=== PATIENT | female | born 1990 | race Caucasian/White ===

== ENCOUNTER → 2018-01-03 20:17 | Outpatient (CLI) | payer BC, SELFPAY ==
[2018-01-03 22:37] LABS: Chlamydia Trachomatis by PCR Negative (Negative); Neisserai gonorrhoeae by PCR Negative (Negative); Probe Check PASS; Sample Adequacy Control PASS; Specimen Processing Control PASS
[2018-01-06 13:04] LABS: HPV Reflexed? NOT INDICATED
== END ==
PROVIDERS: Family Provider Student in an Organized Health Care Education/Training Program; PCP Student in an Organized Health Care Education/Training Program; Visit Provider Obstetrics & Gynecology
DX: Z34.90 Encounter for supervision of normal pregnancy, unspecified, unspecified trimester (principal); Z12.4 Encounter for screening for malignant neoplasm of cervix
CPT/HCPCS: 87086; 87088; 87491; 87591; 88175; G0145

== ENCOUNTER → 2018-01-18 08:13 | Outpatient (CLI) | payer BC, SELFPAY ==
[2018-01-18 08:43] LABS: Absolute Lymphocyte Count 1.73 X10^3/ul (0.83-4.51); Absolute Neutrophil Count 8.3 X10^3/uL (2.0-7.7); Basophil# 0.02 X10^3/uL; Basophil% 0.2 % (0-1); Eosinophils% 4.6 % (0-5); Hematocrit 37.9 % (37-47); Hemoglobin 11.9 g/dl (12.0-15.0); Lymphocyte # 1.73 X10^3/ul (4.0); Mean Corp Hgb Conc 31.4 g/gl (32-36); Mean Corpuscular Hgb 27.6 pg (27.0-32.0); Mean Corpuscular Volume 87.9 fL (81-99); Mean Platelet Vol. 10.7 fl (6.2-12.0); Monocyte# 0.28 X10^3/uL; Monocyte% 2.6 % (0-10); Neutrophil # 8.27 X10^3/uL (2.7-7.7); Neutrophil % 76.5 % (47-70); POSITIVE COUNT NO; POSITIVE DIFFERENTIAL NO; POSITIVE MORPHOLOGY NO; Platelet Count 233 K/mm3 (150-450); RBC Distribution Width SD 45.5 fl (35.1-43.9); Red Blood Count 4.31 M/mm3 (4.2-5.4); White Blood Count 10.8 K/mm3 (4.4-11.0)
[2018-01-18 09:01] LABS: Creatinine, Urine (random) < 13.00 mg/dL (NO RANGE EST.); Protein, Urine (Random) < 6.0 mg/dL (<11.9)
[2018-01-18 09:08] LABS: ALB/GLOB Ratio 0.8 RATIO (0.9-2.4); AST(SGOT) 11 U/L (15-37); Alanine Aminotransfer ALT/SGPT 20 U/L (13-56); Albumin, Serum 3.1 g/dL (3.2-5.0); Alkaline Phosphatase 76 U/L (45-117); Anion Gap 9 (5-15); BUN 8 mg/dL (7-18); BUN/Creat Ratio 16.9 RATIO (10-20); Calcium,Total 8.5 mg/dL (8.5-10.1); Chloride 108 mmol/L (98-107); Creatinine, Serum 0.47 mg/dL (0.55-1.02); EST Glomerular Filtration Rate 168 mL/min (>60); Est Glom Filt Rate - Afr Amer 203 mL/min (>60); Globulin 4.1 g/dL (2.2-4.2); Glucose 111 mg/dL (74-106); Glucose Challenge Gest 1H 50g 111 mg/dL (70-140); LDH 154 U/L (84-246); Potassium 3.5 mmol/L (3.5-5.1); Protein, Total 7.2 g/dL (6.4-8.2); Sodium Level 140 mmol/L (136-145); Uric Acid 3.7 mg/dL (2.6-6.0)
--- NOTE | 2018-01-18 09:11 | EKG12_ITS ---
Test Reason : HTN Blood Pressure : / mmHG Vent. Rate : 097 BPM Atrial Rate : 097 BPM P-R Int : 140 ms QRS Dur : 088 ms QT Int : 358 ms P-R-T Axes : 049 077 045 degrees QTc Int : 454 ms Normal sinus rhythm Normal ECG Confirmed by PRAKASH CORTES ([id number]), research editor OLEGARIO KESSLER ([id number] on 01/20/2018 2:27:15 PM Referred By: Claire Saldana Confirmed By:PRAKASH CORTES
[2018-01-19 09:46] LABS: HIV - WCH Non-Reactive (Nonreactive); Rubella IgG 133.8 IU/mL
[2018-01-19 11:21] LABS: HEPATITIS B SURFACE AG Negative (Negative)
[2018-01-21 03:10] LABS: Rapid Plasmin Reagin (RPR) NONREACTIVE (NONREACTIVE)
== END ==
PROVIDERS: Family Provider Student in an Organized Health Care Education/Training Program; PCP Student in an Organized Health Care Education/Training Program; Visit Provider Obstetrics & Gynecology
DX: O10.919 Unspecified pre-existing hypertension complicating pregnancy, unspecified trimester (principal); Z3A.00 Weeks of gestation of pregnancy not specified
CPT/HCPCS: 80053; 82570; 82950; 83615; 84156; 84550; 85025; 86592; 86703; 86762; 86850; 86900; 87340; 93005

== ENCOUNTER → 2018-03-17 08:51 | Outpatient (CLI) | payer BC, SELFPAY ==
--- NOTE | 2018-03-17 08:52 | US_ITS ---
STUDY: SECOND AND THIRD TRIMESTER OBSTETRICAL ULTRASOUND REASON FOR EXAM: Female, 27 years old. Routine survey. LMP: November 03, 2017. TECHNIQUE: Transabdominal PRIOR ULTRASOUND: None. FINDINGS: There is a single intrauterine fetus. The fetus is in a cephalic presentation. There is demonstrated cardiac activity with a heart rate of 144 bpm. There is a normal amniotic fluid volume. The largest amniotic fluid pocket measures 6.32 cm. The amniotic fluid index (AMOS) is within normal limits. The placenta is posterior in location and is not low lying. There are Grade 0 placental changes. The cervix measures 4.5 cm in length. A trace amount of fluid is seen in the cervix. The adnexal regions are not visualized. BIOMETRY: BPD: 4.27 cm: 19 weeks, 0 days HC: 16.2 cm: 19 weeks, 0 days AC: 13.74 cm: 19 weeks, 2 days FL: 3.03 cm: 19 weeks, 3 days CI: 74% FL/BPD: 71% FL/HC: FL/AC: 22% HC/AC: 1.18 age by current US: 19 weeks, 2 days. GABRIELLE by current US: August 09, 2018. Estimated weight: 281 grams, +/- 41 grams, 50 %. Age by LMP: 19 weeks, 1 days. GABRIELLE by LMP: August 10, 2018. ANATOMY: Gender: Indeterminant Cranium: Normal lateral ventricles. Normal choroid plexus. Normal cerebellum. Normal cisterna magna. Normal face, nose and lips. Chest: Normal 4-chamber heart. Abdomen/Pelvis: Normal diaphragm. Normal stomach. Normal abdominal wall. Normal cord insertion. Normal 3 vessel cord. Normal kidneys. Normal bladder. Spine: Normal cervical spine. Normal thoracic spine. Normal lumbar spine. Normal sacrum. Extremities: Normal bilateral upper extremities. Normal bilateral lower extremities. US/OB Anatomy Scan IMPRESSION: Single live uterine gestation with a mean gestational age of 19 weeks and 2 days. Electronically Signed: Ortega Gerard MD at 15:31 EDT Tel [phone], Service support ,
== END ==
PROVIDERS: Family Provider Student in an Organized Health Care Education/Training Program; PCP Student in an Organized Health Care Education/Training Program; Visit Provider Obstetrics & Gynecology
DX: O10.919 Unspecified pre-existing hypertension complicating pregnancy, unspecified trimester (principal); Z3A.00 Weeks of gestation of pregnancy not specified
CPT/HCPCS: 76805

== ENCOUNTER → 2018-03-23 15:16 | Outpatient (CLI) | payer BC, SELFPAY ==
[2018-03-23 16:59] LABS: Protein, Urine (Random) 19.4 mg/dL (<11.9); Protein:Creat Ratio 141 mg/g CRE (0-200)
== END ==
PROVIDERS: Family Provider Student in an Organized Health Care Education/Training Program; PCP Student in an Organized Health Care Education/Training Program; Visit Provider Nurse Practitioner Women's Health
DX: O10.919 Unspecified pre-existing hypertension complicating pregnancy, unspecified trimester (principal); Z3A.00 Weeks of gestation of pregnancy not specified
CPT/HCPCS: 82570; 84156

== ENCOUNTER → 2018-05-17 11:09 | Outpatient (CLI) | payer BC, SELFPAY ==
[2018-05-17 12:56] LABS: Absolute Lymphocyte Count 1.79 X10^3/ul (0.83-4.51); Basophil# 0.02 X10^3/uL; Basophil% 0.1 % (0-1); Eosinophil# 0.31 X10^3/uL; Eosinophils% 2.3 % (0-5); Hematocrit 33.7 % (37-47); Hemoglobin 10.6 g/dl (12.0-15.0); Lymphocyte # 1.79 X10^3/ul (4.0); Lymphocyte % 13.1 % (19-41); Mean Corp Hgb Conc 31.5 g/gl (32-36); Mean Corpuscular Hgb 27.5 pg (27.0-32.0); Mean Corpuscular Volume 87.5 fL (81-99); Mean Platelet Vol. 11.2 fl (6.2-12.0); Monocyte% 3.7 % (0-10); Neutrophil % 80.5 % (47-70); Platelet Count 226 K/mm3 (150-450); RBC Distribution Width SD 47.7 fl (35.1-43.9); Red Blood Count 3.85 M/mm3 (4.2-5.4); White Blood Count 13.7 K/mm3 (4.4-11.0)
[2018-05-17 12:58] LABS: POSITIVE COUNT NO; POSITIVE DIFFERENTIAL NO; POSITIVE MORPHOLOGY NO
[2018-05-17 13:25] LABS: Glucose Challenge Gest 1H 50g 101 mg/dL (70-140)
== END ==
PROVIDERS: Family Provider Student in an Organized Health Care Education/Training Program; PCP Student in an Organized Health Care Education/Training Program; Visit Provider Obstetrics & Gynecology
DX: O09.90 Supervision of high risk pregnancy, unspecified, unspecified trimester (principal); Z3A.00 Weeks of gestation of pregnancy not specified
CPT/HCPCS: 36415; 82950; 85025

== ENCOUNTER → 2018-06-24 14:01 | Outpatient (CLI) | payer BC, SELFPAY | PROVIDERS: Family Provider Student in an Organized Health Care Education/Training Program; PCP Student in an Organized Health Care Education/Training Program; Visit Provider Obstetrics & Gynecology | DX: O10.919 Unspecified pre-existing hypertension complicating pregnancy, unspecified trimester (principal); Z3A.33 33 weeks gestation of pregnancy | CPT/HCPCS: 76816 ==

== ENCOUNTER → 2018-07-12 17:02 | Outpatient (CLI) | payer BC, SELFPAY ==
[2018-07-12 19:53] LABS: Group B Strep DNA By PCR Negative (Negative); Internal Control PASS; Probe Check PASS; Specimen Processing Control PASS
== END ==
PROVIDERS: Family Provider Student in an Organized Health Care Education/Training Program; PCP Student in an Organized Health Care Education/Training Program; Visit Provider Obstetrics & Gynecology
DX: Z34.90 Encounter for supervision of normal pregnancy, unspecified, unspecified trimester (principal)
CPT/HCPCS: 87081; 87653

== ENCOUNTER 2018-08-01 09:55 | Inpatient (IN) | payer BC, SELFPAY ==
[2018-07-26 12:00] VITALS: BMI 49.8
[2018-08-01] VITALS (15 sets, daily range): BP systolic 113–150; BP diastolic 72–91; PULSE 80–115; RESP 15–18; TEMP 35.8–36.6; O2SAT 97–100
--- NOTE | 2018-08-01 | FALS_PTH ---
PATIENT: CARL GROSS LOC: WP U#:[id number] AGE/SX: 27/F ROOM: WP007 RE08/01/[address]: Dr. Claire Saldana MD : 1990 BED: 1 DIS: 08/03/2018 SPEC #: [id number] RECD: 08/01/18 14:46 STATUS: EZ REMiguel #: [id number] PASCALE: 08/01/18 00:[address]: Claire Saldana DEPT: SURGICAL PATHOLOGY RECD BY: Braxton Adan ENTERED: 08/01/18 14:46 SP TYPE: FALL TUBES OTHR DR: Dr. Ky Alford, Tissues: Fallopian tube Procedures: Surgery Specimen Level II HEADER OPERATION: Tubal ligation PRE-OP DIAGNOSIS: Desires sterilization TISSUE SUBMITTED: Fallopian tubes MICROSCOPIC DIAGNOSIS Bilateral fallopian tubes, tubal ligation: Completely transected segments of bilateral fallopian tubes, no pathologic diagnosis. SJ:concetta 08/02/18 MICROSCOPIC DESCRIPTION Slides are reviewed. GROSS DESCRIPTION Received in fixative is one container labeled with the patient's name and designated right fallopian tube - suture, left fallopian tube - no suture. The specimen consists of two tubular pieces of harris soft tissue with the right tube identified by a suture. The right tube is inked black and measures 1 cm in length and 0.6 cm in diameter. The left tube measures 1.5 cm in length and 0.8 cm in diameter. The entire specimen is submitted in one cassette. Both pieces will be sectioned at the time of embedding. / PATIENCE:concetta 08/01/18 TC:4 CPT: 04538 x2
[2018-08-01] MEDS: Lactated Ringers 1,000 ML 999 ML IV (10:30)
[2018-08-01 10:46] LABS: Absolute Lymphocyte Count 1.86 X10^3/ul (0.83-4.51); Absolute Neutrophil Count 10.7 X10^3/uL (2.0-7.7); Basophil# 0.03 X10^3/uL; Basophil% 0.2 % (0-1); Eosinophil# 0.17 X10^3/uL; Eosinophils% 1.3 % (0-5); Hematocrit 37.8 % (37-47); Hemoglobin 12.5 g/dl (12.0-15.0); Lymphocyte # 1.86 X10^3/ul (4.0); Lymphocyte % 13.9 % (19-41); Mean Corp Hgb Conc 33.1 g/gl (32-36); Mean Corpuscular Hgb 28.9 pg (27.0-32.0); Mean Corpuscular Volume 87.3 fL (81-99); Mean Platelet Vol. 11.5 fl (6.2-12.0); Monocyte# 0.56 X10^3/uL; Monocyte% 4.2 % (0-10); Neutrophil # 10.69 X10^3/uL (2.7-7.7); Neutrophil % 79.9 % (47-70); Platelet Count 246 K/mm3 (150-450); RBC Distribution Width CV 15.2 % (11.6-14.6); RBC Distribution Width SD 48.2 fl (35.1-43.9); Red Blood Count 4.33 M/mm3 (4.2-5.4); White Blood Count 13.4 K/mm3 (4.4-11.0)
[2018-08-01 10:51] LABS: POSITIVE COUNT NO; POSITIVE DIFFERENTIAL NO; POSITIVE MORPHOLOGY NO
[2018-08-01] MEDS: Lactated Ringers 1,000 ML 150 ML IV (11:30)
[2018-08-01] MEDS: Sodium Citrate/Citric Acid 30 ML UDC PO (12:11)
[2018-08-01] MEDS: Oxytocin 30 units/NS 500 ml 30 UNITS/500 ML IV.SOLN 167 UNITS IV (13:00)
[2018-08-01 14:26] LABS: Pathology Specimen OB SEE PATHOLOGY REPORT
[2018-08-01] MEDS: Nalbuphine 10 MG/ML Ampul 5 MG IV (15:52)
[2018-08-01] MEDS: 0.9% Saline Lock 10 ML Syringe IV (15:55)
--- NOTE | 2018-08-01 17:06 | NURSING ---
Mom encouraged to call so I can observe a latch. Mom nursed well with two prior children. Lali
[2018-08-01] MEDS: Lactated Ringers 1,000 ML 100 ML IV (17:17)
[2018-08-01] MEDS: Ketorolac 30 MG/ML Syringe IV (18:06)
[2018-08-01] MEDS: Labetalol 200 MG Tablet PO (22:29)
[2018-08-02] VITALS (11 sets, daily range): BP systolic 93–136; BP diastolic 52–90; PULSE 85–107; RESP 16–18; TEMP 36.3–36.6; O2SAT 96–100
[2018-08-02] MEDS: Ketorolac 30 MG/ML Syringe IV ×4 (00:15→18:07)
--- NOTE | 2018-08-02 00:40 | NURSING ---
Pt. resting in bed. Awakened for vital signs. BP obtained and result 87/48. Uterus checked and felt at u-1, firm, and midline. Small clot noticed at vaginal opening and expelled. No excessive or trickle bleeding noted. BP reassessed and result 93/52. Pt. denies excessive cramping or lightheadedness. Labetalol was given at 2229. Will continue to monitor.
[2018-08-02] MEDS: Lactated Ringers 1,000 ML 100 ML IV (03:06)
[2018-08-02 06:39] LABS: Hemoglobin 10.9 g/dl (12.0-15.0); Mean Corp Hgb Conc 32.1 g/gl (32-36); Mean Corpuscular Hgb 28.2 pg (27.0-32.0); Mean Corpuscular Volume 87.9 fL (81-99); Mean Platelet Vol. 11.2 fl (6.2-12.0); Platelet Count 198 K/mm3 (150-450); RBC Distribution Width CV 15.3 % (11.6-14.6); Red Blood Count 3.87 M/mm3 (4.2-5.4); White Blood Count 14.5 K/mm3 (4.4-11.0)
[2018-08-02 06:49] LABS: Scan Indicated on CBC? Y/N NO
[2018-08-02] MEDS: Acetaminophen 500 MG Tablet 1000 MG PO ×2 (09:41→19:43)
[2018-08-02] MEDS: 0.9% Saline Lock 10 ML Syringe IV ×2 (09:41→12:31)
[2018-08-02] MEDS: Labetalol 200 MG Tablet PO (10:14)
[2018-08-02] MEDS: Prenatal Vits Tablet 1 TABLET PO (11:23)
--- NOTE | 2018-08-02 15:08 | NURSING ---
assessment unchanged from this a.m.
--- NOTE | 2018-08-02 15:11 | NURSING ---
mason removed at 1300, emptied 1400 cc yellow urine from bag
[2018-08-02] MEDS: oxyCODONE 5 MG Tablet PO ×2 (16:18→21:01)
--- NOTE | 2018-08-02 18:07 | PCM.PN.OB ---
Subjective: doing well no complaints pain controlled - Physical Exam General: Alert, Oriented x3 Vital Signs Temp Pulse Resp BP Pulse Ox 97.5 F L 100 16 131/76 H 98 08/02/18 16:00 08/02/18 16:00 08/02/18 16:00 08/02/18 16:00 08/02/18 16:00 Oxygen Delivery Method Room Air Weight: 290 lb 8 oz Body Mass Index (BMI) 49.8 Intake and Output for Last 24 Hours 07/31/18 08/01/18 08/02/18 23:59 23:59 23:59 Intake Total 771 / 771 874 / 874 Output Total 850 / 850 1150 / 1150 Balance -79 / -79 -276 / -276 Laboratory Tests Past 24 Hrs 08/02/18 06:30 WBC 14.5 H RBC 3.87 L Hgb 10.9 L Hct 34.0 L MCV 87.9 MCH 28.2 MCHC 32.1 RDW 15.3 H RDW Differential 49.0 H Plt Count 198 MPV 11.2 Medical Necessity - Tobacco Use Smoking Status: Never smoker Assessment/Plan All Active Problems (Last Reviewed 07/26/18 @ 10:36 by Tabatha Encarnacion) (Acute) Anemia in (Acute) History of 2 sections (Acute) Obesity affecting (Acute) Chronic hypertension affecting (Acute) Supervision of high-risk (Acute) s/p RLTCS BTL routine care decrease labetalol to 100mg BID
[2018-08-02] MEDS: Labetalol 100 MG Tablet PO (21:58)
[2018-08-03] MEDS: Ketorolac 30 MG/ML Syringe IV ×3 (00:18→11:58)
[2018-08-03] MEDS: 0.9% Saline Lock 10 ML Syringe IV ×3 (00:19→11:57)
[2018-08-03] MEDS: oxyCODONE 5 MG Tablet PO ×3 (01:15→13:35)
[2018-08-03 01:23] VITALS: BP 114/73; PULSE 95; RESP 16; TEMP 36.2; O2SAT 99
[2018-08-03 08:55] VITALS: BP 129/86; PULSE 105; RESP 16; TEMP 36.2; O2SAT 99
[2018-08-03] MEDS: Labetalol 100 MG Tablet PO (10:28)
[2018-08-03] MEDS: Prenatal Vits Tablet 1 TABLET PO (11:59)
[2018-08-03 13:35] VITALS: BP 131/87; PULSE 105; TEMP 36.3; O2SAT 96
--- NOTE | 2018-08-03 14:07 | PCM.HP.OB ---
- Problem List (1) Status: Acute Qualifiers: (2) Anemia in Status: Acute Qualifiers: (3) History of 2 sections Status: Acute Comment: planning RLTCS and BTL (4) Obesity affecting Status: Acute Qualifiers: Comment: 1 tm glucola (5) Chronic hypertension affecting Status: Acute Comment: labetalol 200mg bid, baseline labs ordered, recommend baby asa at 12-16 weeks (6) Supervision of high-risk Status: Acute Qualifiers: Comment: PRR GABRIELLE 08/09/18 boy Stephon SOFI Porfirio Fowler Jaylen History Date of Admission: 11/12/14 Final GABRIELLE: 08/15/18 Gestational age: 38 Weeks Days History of this : This is a 27 year-old, , at 38 weeks gestational age presents for RLTCS BTL. she has cHTN Medical History: Medical History (Last Reviewed 07/26/18 @ 10:36 by Tabatha Encarnacion) Anxiety and depression F41.8 Hypertension I10 Surgical History: Surgical History (Last Reviewed 07/26/18 @ 10:36 by Tabatha Encarnacion) delivery delivered O82 Allergies amoxicillin Adverse Reaction (Verified 08/01/18 14:23) Nausea/Vom/Diarrhea Home Medications: Home Medications vitamin,calcium,xahierjv-tdow-ntvyt acid tablet 1 tab PO QDAY 01/03/18 promethazine 12.5 mg tablet See Rx Instructions PO Q6H PRN #60 tab 01/05/18 breast pump See Dose Instructions .ROUTE .MEDSUPPLY #1 ea 07/05/18 Labetalol [Trandate (Beta Pat)] 200 mg PO BID 07/26/18 Smoking Status: Never smoker Alcohol: None Number of Fetus(es): 1 Heart Tracin History Past Pregnancies: Past Pregnancies 2 previous term cs Delivery Date Name GA/Weeks Outcome Route Weight Infant Gender Labor Length Anesthesia Delivery Location Provider FOB Labs: Mom's Labs & Results 08/01/18 08/01/18 08/02/18 10:30 10:30 06:30 WBC 13.4 H 14.5 H RBC 4.33 3.87 L Hgb 12.5 10.9 L Hct 37.8 34.0 L MCV 87.3 87.9 MCH 28.9 28.2 MCHC 33.1 32.1 RDW 15.2 H 15.3 H RDW Differential 48.2 H 49.0 H Plt Count 246 198 MPV 11.5 11.2 Immature Gran % (Auto) 0.500 Neut % (Auto) 79.9 H Lymph % (Auto) 13.9 L Gray % (Auto) 4.2 Eos % (Auto) 1.3 Baso % (Auto) 0.2 Absolute Neuts (auto) 10.7 H Absolute Lymphs (auto) 1.86 Total Counted Not Reportable Blood Type A POSITIVE Antibody Screen NEGATIVE Course Did the patient receive Yes care? Labs Blood Type: A RH: POSITIVE RPR/VDRL/Syphilis Nonreactive Rubella status Immune HbSAg Negative Date Done: 01/03/18 Chlamydia Negative Gonorrhea Negative HIV/AIDS Non-Reactive Group B Strep: Positive Other Lab Procedures/Results/ gbs in 01/16 was positive in urine Comments: neg on 07/12/18 Current Obstetrical History Gestational Diabetes No Incompetent Cervix No Infertility No IUGR No Macrosomia No Hypertension/Pre-eclampsia Yes Placenta Previa/Abruption No PTL/PROM No Uterine anomaly No Oligohydramnios No Polyhydramnios No Multiple gestation No Past Medical History Asthma No Diabetes No Hypertension Yes Heart disease No Mitral valve prolapse Yes Neurologic/Seizure disorder/ No Migraines Kidney disease No Liver disease No Varicosities No Clotting disorders/Hx of DVT No Thyroid Dysfunction No Other medical diseases No Psychiatric disorders No Major trauma No Abnormal PAP smear No Sleep apnea No Mammogram in the last 2 years No Enter DETAILS of medical hx of anxiety and depression history Social History Marital Status: Alleged father Jaylen Hx Smoking No Smoking Status Never smoker Expected Delivery Method: Scheduled Section Review of Systems Constitutional: Denies: Fever, Malaise Eyes: Denies: Blurred vision, Vision Change HEENT: Denies: Head Aches, Visual Changes Cardiovascular: Denies: Chest Pain, Palpitations Respiratory: Denies: Cough, Shortness of Breath, Wheezing Gastrointestinal: Denies: Abdominal Pain, Diarrhea, Nausea, Vomiting Genitourinary: Denies: Dysuria, Hematuria Musculoskeletal: Denies: Joint Pain, Muscle pain Skin: Denies: Lesions, Rash Neurological: Denies: Blurred vision, Focal weakness, Headaches Psychiatric: Denies: Anxiety, Depression Endocrine: Denies: Heat/ Cold Intolerance Hematologic/ Lymphatic: Denies: Easy Bruising, Easy Bleeding Physical Exam Vitals: Vital Signs Temp Pulse Resp BP Pulse Ox 97.4 F L 105 H 16 131/87 H 96 08/03/18 13:35 08/03/18 13:35 08/03/18 08:55 08/03/18 13:35 08/03/18 13:35 General: Alert, Cooperative, No apparent distress HEENT: Atraumatic, Normocephalic. Negative for: Thyromegaly, Lymphadenopathy Cardiovascular: Regular rate Lungs: Normal air movement Abdomen: Soft, Non Tender, Gravid Neurological: Deep Tendon Reflexes 2+/4 and Symmetrical, Neuro grossly intact. Negative for: Clonus [employer]: Normal external genitalia. Negative for: Vulvar lesions Estimated gestational size: Appropriate for gestational size Presentation: Cephalic Assessment/Plan All Active Problems (Last Reviewed 07/26/18 @ 10:36 by Tabatha Encarnacion) (Acute) Anemia in (Acute) History of 2 sections (Acute) Obesity affecting (Acute) Chronic hypertension affecting (Acute) Supervision of high-risk (Acute) 27 yo @ 38 weeks presents for RLTCS BTL desired sterilization declines TOLAC plan RLTCS BTL continue labetalol
--- NOTE | 2018-08-03 14:09 | OP.PCM_ITS ---
Problem List (1) Status: Acute Qualifiers: (2) Anemia in Status: Acute Qualifiers: (3) History of 2 sections Status: Acute Comment: planning RLTCS and BTL (4) Obesity affecting Status: Acute Qualifiers: Comment: 1 tm glucola (5) Chronic hypertension affecting Status: Acute Comment: labetalol 200mg bid, baseline labs ordered, recommend baby asa at 12-16 weeks (6) Supervision of high-risk Status: Acute Qualifiers: Comment: PRR GABRIELLE 08/09/18 boy Stephon SOFI Porfirio Fowler Jaylen Report of Operation Date of Procedure: 08/01/18 Pre-Operative Diagnosis: Previous x2 desired sterilization Post-Operative Diagnosis: Same Surgery/Procedure Performed:: Repeat low transverse and bilateral tubal ligation Description of Surgical Findings:: Normal uterus tubes and ovaries house calls nurse practitioner: Haylee Osman Type of Anesthesia:: Spinal Special Medications: Luci Specimen's removed: Male Drains: Becker Estimated Blood Loss (mL): 900 Fluids Replaced: Crystalloid Description of Procedure: The patient is a 27-year-old at 38 weeks chronic hypertension presented for repeat lateral tubal ligation. Spinal anesthesia was placed without difficulty. Becker catheter was placed. The patient was placed in the dorsal supine position with leftward tilt. Patient was prepped and draped in the normal sterile fashion. Pfannenstiel skin incision was made with the scalpel and carried through to the underlying layer of fascia with the scalpel. Fascia was nicked in the midline and the incision extended laterally. The rectus bellies were dissected off superiorly and inferiorly with out complication both sharply and bluntly. The peritoneum was entered digitally. The incision was stretched and a low transverse uterine incision was made with the scalpel. The 's buttocks was delivered atraumatically followed by providing gentle traction on the hips the legs were delivered and then the anterior and posterior shoulders without complication the rest of the delivered. The cord was clamped and cut and the infant was handed off to awaiting nurse. The placenta was delivered spontaneously immediately following and was noted to be intact and have a three-vessel cord. The uterus was exteriorized cleared of all clots and debris, and the incision was closed in a single layer closure using #1 Monocryl. Additional fwmcds-lb-kuicn suture was used to obtain excellent hemostasis. At this time tubal ligation was performed via the Vidette method. The mid interstitial portion of the fallopian tube was elevated and mesosalpinx entered with the Bovie and the proximal and distal portions of the tube were suture ligated and the communicating portion was cut and removed and excellent hemostasis was noted. The uterus was returned to the maternal abdomen and gutters were cleared of all clots and debris. The ovaries and fallopian tubes were noted to be within normal limits. The peritoneum was closed with 3-0 Mon ocryl in a running fashion. Fascia was closed with 0 PDS in a running fashion. Subcutaneous tissue was copiously irrigated and the skin was closed with 3-0 Monocryl in a subcuticular fashion. Mepilex dressing were applied without complication. Patient was taken to recovery in stable condition. - Admit VTE Documentation VTE Present on Admission: No
--- NOTE | 2018-08-03 14:09 | PCM.PN.OB ---
Subjective: doing well no complaints pain controlled - Physical Exam General: Alert, Oriented x3 Vital Signs Temp Pulse Resp BP Pulse Ox 97.4 F L 105 H 16 131/87 H 96 08/03/18 13:35 08/03/18 13:35 08/03/18 08:55 08/03/18 13:35 08/03/18 13:35 Oxygen Delivery Method Room Air Weight: 290 lb 8 oz Body Mass Index (BMI) 49.8 Intake and Output for Last 24 Hours 08/01/18 08/02/18 08/03/18 23:59 23:59 23:59 Intake Total 771 / 771 874 / 874 Output Total 850 / 850 1650 / 1650 Balance -79 / -79 -776 / -776 Medical Necessity - Tobacco Use Smoking Status: Never smoker Assessment/Plan All Active Problems (Last Reviewed 07/26/18 @ 10:36 by Tabatha Encarnacion) (Acute) Anemia in (Acute) History of 2 sections (Acute) Obesity affecting (Acute) Chronic hypertension affecting (Acute) Supervision of high-risk (Acute) s/p RLTCS BTL routine care 100mg labetalol BID dc home
--- NOTE | 2018-08-03 14:13 | DCINST_ITS ---
Discharge Diet: No Restrictions Discharge Activity: May Not Drive - for 2 weeks, May not drive while taking narcotic pain medications., May Shower, May Take a Tub Bath - in 7 days May resume sexual activity in: 4-6 weeks Lifting Restrictions: 20 pounds Additional Activity Instructions:: Nothing in the vagina for 4-6 weeks. You may return to work/school in 6 weeks. Call your doctor if your incision/area has: Continuous Slow Oozing, Sudden Increased Bleeding, Increased Pain/ Swelling, Increased Redness, Foul Smelling Discharge Call your doctor if you observe: Fever of 101 or Higher, Using more than one pad per hour - for 2 hours Suture Line Care: Avoid Pulling/Pushing, Avoid Pinching/Bending Cleanse incision/area with: Keep Dressing Clean & Dry Additional Instructions: If you experience any of the following, contact your healthcare provider. * Bleeding that soaks a pad every hour for 2 hours * Fever 100.4 or higher * Unrelieved incision or abdominal pain * Swelling, redness, discharge or bleeding from your incision or episiotomy site * Your incision begins to separate * Problems urinating (including inability to urinate or burning while urinating). * Visual changes * Severe headache * Flu-like symptoms * Pain or redness in one of both of your breasts * Pain, warmth, tenderness or swelling in your legs, especially the calf area * Frequent nausea and vomiting * Symptoms of depression or anxiety If you experience any of the following, call 911 or go to the nearest Emergency Room. * Chest pain * Problems breathing * Seizure activity * Partial or complete paralysis of a body part, slurred speech, weakness or drooping of the face, or a sudden inability to walk or hold your balance Allergies/Adverse Reactions: Allergies amoxicillin Adverse Reaction (Verified 08/01/18 14:23) Nausea/Vom/Diarrhea Medications to take at Discharge vitamin,calcium,wbfyivpz-wbyd-svmzi acid tablet 1 tab PO QDAY 01/03/18 promethazine 12.5 mg tablet See Rx Instructions PO Q6H PRN #60 tab 01/05/18 breast pump See Dose Instructions .ROUTE .MEDSUPPLY #1 ea 07/05/18 Labetalol [Trandate (Beta Pat)] 200 mg PO BID 07/26/18 Labetalol [Trandate (Beta Pat)] 100 mg PO BID #180 tablet 08/03/18 Naproxen [Naprosyn] 250 - 500 mg PO Q8H PRN PRN #30 tablet 08/03/18 Oxycodone HCl/Acetaminophen [Percocet 5-325] 1 - 2 tablet PO Q4H PRN PRN 7 Days #28 tablet 08/03/18 The following prescriptions were given: Oxycodone HCl/Acetaminophen [Percocet 5-325] 1 - 2 tablet PO Q4H PRN PRN 7 Days #28 tablet PRN Reason: Moderate-Severe pain Naproxen [Naprosyn] 250 - 500 mg PO Q8H PRN PRN #30 tablet PRN Reason: MILD PAIN Labetalol [Trandate (Beta Pat)] 100 mg PO BID #180 tablet Follow-Up: Call to make an appointment with your doctor for an incision check in 1-2 weeks. You will also need a 6 week post- follow up appointment. Test results from this visit will be discussed in further detail at your follow- up appointment, if applicable. Please Follow Up With: Claire Saldana MD - Call to make an appointment for an incision check in 1-2 [phone] When: You will need a post- check in 6 weeks. Primary Care Physician: Ky Alford DO [Primary Care Provider] -
== END 2018-08-03 14:40 | disposition home or self-care (01) | DRG 784 ==
PROVIDERS: Admitting Provider Obstetrics & Gynecology; Family Provider Student in an Organized Health Care Education/Training Program; PCP Student in an Organized Health Care Education/Training Program; Visit Provider Obstetrics & Gynecology
PROC: 10D00Z1 Extraction of Products of Conception, Low, Open Approach (ICD-10-PCS; CPT 59514; principal; 2018-08-01 11:45)
DX: O34.211 Maternal care for low transverse scar from previous cesarean delivery (principal); O10.92 Unspecified pre-existing hypertension complicating childbirth; E66.9 Obesity, unspecified; O99.214 Obesity complicating childbirth; Z37.0 Single live birth; Z30.2 Encounter for sterilization; Z3A.38 38 weeks gestation of pregnancy; O99.02 Anemia complicating childbirth
CPT/HCPCS: 85025; 85027; 86850; 86900; 88302; 99218; J7120; A4216; G0378; J2405

== ENCOUNTER 2019-10-03 03:47 | Emergency (ER) | payer BC, SELFPAY ==
[2018-09-19 13:47] VITALS: BMI 42.1
[2019-10-03 03:47] VITALS: BP 161/78; PULSE 116; RESP 18; TEMP 36.6; O2SAT 100; BMI 53.1
--- NOTE | 2019-10-03 04:02 | RAD_ITS ---
STUDY: X-RAY - LUMBAR SPINE REASON FOR EXAM: Female, 28 years old. Lumbar pain x1 month, no known injury. TECHNIQUE: 3 view(s) of the lumbar spine were obtained. COMPARISON: None FINDINGS: Normal lumbar lordosis. There is no substantial scoliosis. There is a normal alignment of the vertebrae. Normal vertebral bodies and endplates. Mild L5-S1 disc space narrowing. L5-S1 facet arthropathy is suspected. Possible neural foraminal narrowing. The soft tissue structures are unremarkable. RAD/Lumbar Spine 2 or 3 Views IMPRESSION: Narrowed disc space L5-S1, probable facet arthropathy. Electronically Signed: Chiquita Ford MD at 4:29 EST , Service support ,
[2019-10-03] MEDS: Ketorolac 60 MG/2 ML Vial IM (04:07)
[2019-10-03] MEDS: Triamcinolone Acetonide 40 MG/ML Vial IM (04:08)
--- NOTE | 2019-10-03 04:44 | ED.DCSUM_ITS ---
- ER Visit Summary Date of Service: 10/03/19 Chief Complaint: Low back pain History of Present Illness: The patient is a 28 F here for low back pain. Pain started about a month ago. Patient denies injury or any inciting event. It is worse at nighttime and better throughout the day. She has trouble sleeping, and her symptoms were worse tonight, so she came to the ED. She has tried anti- inflammatories, muscle relaxants, and even a steroid burst therapy. The steroids helped somewhat, but then the pain recurred when she finished. She denies any history of back surgery. Denies fever or systemic symptoms. Denies any history of immune compromise or problems with fractures. Denies any weakness or numbness. Denies any bowel or bladder changes. Denies any history of epidural abscess or hematoma. Denies any history of aorta or vascular disease. Physical Examination: Afebrile and vital signs unremarkable except for tachycardia. Patient appears uncomfortable but not toxic or in distress. Upper lumbar spine is tender to palpation over the midline. Otherwise inspection is normal. Legs show good strength and sensation. Pulses strong and equal. Test Results: X-rays show narrowed disc space L5-S1 with possible facet arthropathy. Emergency Department Course and Treatment: X-ray show chronic findings. Nothing at the upper lumbar spine to explain her symptoms. I suspect this is myofascial pain. She was treated with Toradol and Kenalog. Reevaluation, she was feeling somewhat better. She will be discharged home. Continue anti-inflammatories and muscle relaxers. We will add a short course of pain medicine to help her sleep at night. Follow-up with her doctor for further outpatient care. Return for any new or worsening issues. Treatment Plan: As above Disposition: Discharge Impression: 1. Lumbar back pain This note was generated with [employer] dictation software. It may contain incorrect words, spelling, and punctuation that were not noted in review of the chart prior to signing ED Disposition - Plan for ED Patient: Referrals: Ky Alford DO [Primary Care Provider] -
--- NOTE | 2019-10-03 04:48 | DCINST.ED_ITS ---
ED Disposition - Plan for ED Patient: Instructions: Back Sprain/Strain Prescriptions: Hydrocodone Bitart/Apap 5-325 [[place] 5MG-325MG] 1 tab PO Q6H PRN PRN 2 Days #8 tab PRN Reason: Pain Prescription Printed Referrals: Ky Alford DO [Primary Care Provider] -
[2019-10-03 04:55] VITALS: BP 140/100; PULSE 100; RESP 20; O2SAT 100
== END 2019-10-03 04:56 | disposition home or self-care (01) ==
PROVIDERS: Emergency Provider Emergency Medicine; Family Provider Student in an Organized Health Care Education/Training Program; PCP Student in an Organized Health Care Education/Training Program
DX: M54.5 Low back pain (principal); I10 Essential (primary) hypertension; Z79.899 Other long term (current) drug therapy
CPT/HCPCS: 72100; 96372; 99283

== ENCOUNTER → 2021-02-14 16:39 | Outpatient (CLI) | payer BC, SELFPAY ==
[2021-02-14 11:39] VITALS: BMI 55.9
[2021-02-19 12:41] LABS: HPV APTIMA, High Risk Negative (Negative)
== END ==
PROVIDERS: PCP Student in an Organized Health Care Education/Training Program; Referring Provider Obstetrics & Gynecology; Visit Provider Obstetrics & Gynecology
DX: Z12.4 Encounter for screening for malignant neoplasm of cervix (principal)
CPT/HCPCS: 87624; 88175; G0145

== ENCOUNTER → 2024-04-26 | Outpatient (CLI) | payer BC, SELFPAY ==
--- NOTE | 2024-04-26 10:08 | RAD_ITS ---
INDICATION: CALCULUS OF KIDNEY EXAMINATION/TECHNIQUE: X-RAY - XR Abdomen 3 COMPARISON: No relevant prior comparison study available FINDINGS: BOWEL GAS PATTERN: Non-obstructive. No bowel or stomach distention. FREE AIR: Not assessed on a single supine view. ORGANOMEGALY: Not seen. CALCIFICATIONS: There are no calcifications within the expected region of the kidneys. There are three round calcific densities projecting over the urinary bladder measuring up to 6.7 mm. LOWER CHEST: No acute pathology. BONES AND SOFT TISSUES: No acute pathology. RAD/Abdomen Single View IMPRESSION: No renal calculi identified. Calcific densities projecting over the urinary bladder, may reflect phlebolith, cannot exclude bladder calculi. Electronically Signed: Airam Velásquez MD at 12:20 EDT ,
== END | disposition home or self-care (01) ==
LOC: RAD 10:05
PROVIDERS: PCP Student in an Organized Health Care Education/Training Program; Referring Provider Urology; Visit Provider Urology
DX: N20.0 Calculus of kidney (principal)
CPT/HCPCS: 74018; J2405

== ENCOUNTER 2024-04-28 15:03 | Day surgery (SDC) | payer BC, SELFPAY ==
[2024-04-28] VITALS (10 sets, daily range): BP systolic 127–150; BP diastolic 83–97; PULSE 16–119; RESP 16; TEMP 36.3–36.7; O2SAT 92–100; BMI 55.3
--- NOTE | 2024-04-28 15:12 | HP.PCM_ITS ---
HPI - General General Date of Service: 04/28/24 Chief Complaint: Right distal ureteral calculi HPI Narrative CARL GROSS, is a 33 F who presents for laser lithotripsy of stone on the right side she was an add-on for surgery for today here at [facility] she is been having severe renal colic on the right side. [facility] Medical History (Updated 07/16/22 @ 09:51 by Gayla Ramírez RN) Hypertension Anxiety and depression Home Medications ?Medication ?Instructions ?Recorded ?Last Taken ?Type metoprolol tartrate 100 mg tablet 100 mg PO DAILY 10/03/19 Unknown History lisinopril 20 mg tablet 20 mg PO DAILY 02/14/21 Unknown History multivitamin 1 tablet PO DAILY 02/14/21 Unknown History venlafaxine 75 mg capsule,extended 75 mg PO DAILY 02/14/21 Unknown History release 24 hr (Effexor XR) Allergy/AdvReac Type Severity Reaction Status Date / Time amoxicillin AdvReac Nausea/Vom/ Verified 04/28/24 15:13 Diarrhea Family History Mother Diabetes Father Myocardial infarction, Onset Age: 42 Surgical History (Updated 02/14/21 @ 11:58 by Rowena Logan) Tubal ligation status delivery delivered Social History (Updated 02/14/21 @ 12:[address] 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
[2024-04-28 15:18] LABS: Internal QC Validated? YES +Cl - CLEAR BKGD; Pregnancy, Urine Negative Negative; Record Kit Lot#,Urine Preg HCG0000772476
[2024-04-28] MEDS: Lactated Ringers 1,000 ML 15 ML IV (15:20)
--- NOTE | 2024-04-28 15:24 | PCM.PRE.AN2 ---
ASA Classification* ASA Classification ASA Classification: 3 Assessment & Plan Anesthesia* Anesthesia Assessment Anesthesia Assessment: Discussed sedation and/or anesthesia options, risks, benefits, and alternatives with patient/parents/legal guardian/POA. Questions invited. The patient/parents/legal guardian/POA seems to understand and agrees to proceed with anesthesia plan. Reviewed the physical assessment, medical history, allergy history and patient home medications list prior to surgery/procedure/anesthetic and documented any changes. Performed airway and anesthesia risk assessments. Anesthesia Type Anesthesia Type: General History Source History Obtained from:: Patient and Chart Anesthesia Focused Assessment* Temperature: 98.1 F Pulse Rate: 119 Blood Pressure: 150/97 Respiratory Rate: 16 Pulse Ox: 100 Oxygen Delivery Method: Room Air Airway Assessment Mouth opens: >3 cm Mallampati Score: II Teeth Condition: Intact Neck Range of motion (ROM): Full ROM Focused Labs Anesthesia Preop lab: CBC WBC 14.5 K/mm3 (4.4-11.0) H 08/02/18 06:30 RBC 3.87 M/mm3 (4.2-5.4) L 08/02/18 06:30 Hgb 10.9 g/dl (12.0-15.0) L 08/02/18 06:30 Hct 34.0 % (37-47) L 08/02/18 06:30 Plt Count 198 K/mm3 (150-450) 08/02/18 06:30 CHEMISTRY Potassium 3.5 mmol/L (3.5-5.1) 01/18/18 08:18 Sodium 140 mmol/L (136-145) 01/18/18 08:18 BUN 8 mg/dL (7-18) 01/18/18 08:18 Creatinine 0.47 mg/dL (0.55-1.02) L 01/18/18 08:18 Glucose 111 mg/dL (74-106) H 01/18/18 08:18 COAG Urine Test Negative Negative 04/28/24 15:10 Pre-Assessment Diagnosis/Proposed Procedure Planned Operative Procedure(s): RIGHT LASER, STENT PLACEMENT Anesthesia History 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 When Was Last Pacemaker Check QUESTION #4 FULL TEXT: You/Your Family Experience fever (hyperthermia) with Anesthesia Last Oral Intake Last Oral intake: Last Oral Intake NPO since Meds taken in AM with sips of water? Meds patient instructed to take am of surgery Any additional information?: Yes NPO since: 00:00 PONV PONV - regional dedicated truck driver: PONV - regional dedicated truck driver Female Yes 04/28/24 15:14 HX of Motion Sickness No 04/28/24 15:14 HX of N/V After Surgery Yes 04/28/24 15:14 Non-Smoker Yes 04/28/24 15:14 Duration of Surgery greater No 04/28/24 15:14 than 60 minutes Number of Risk Factors 3 04/28/24 15:14 PONV Score Moderate Risk 04/28/24 15:14 Height & Weight Height & Weight: Anesthesia: Height & Weight Height 5 ft 8 in 04/28/24 15:14 Weight: 165 kg 04/28/24 15:14 Body Mass Index (BMI) 55.3 04/28/24 15:14 Respiratory Assessment Respiratory Assessment - regional dedicated truck driver: Respiratory Tract Infection Hx - regional dedicated truck driver Hx Respiratory Tract Infection No 04/28/24 15:14 STOP Sleep Apnea STOP Sleep Apnea - regional dedicated truck driver: STOP Sleep Apnea - regional dedicated truck driver Hx Hypertension Yes 04/28/24 15:14 Hx Sleep Apnea No 04/28/24 15:14 CPAP BIPAP Do you snore loudly (louder No 04/28/24 15:14 than talking or can be heard Do you often feel tired/ No 04/28/24 15:14 fatigued/ sleepy during daytime? Has anyone observed you stop No 04/28/24 15:14 breathing during sleep? STOP Results Negative 04/28/24 15:14 QUESTION #5 FULL TEXT : Do you snore loudly (louder than talking or can be heard through closed doors)? 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 Specify any problems Hx of Preganancy in last 3 No 04/28/24 15:14 Months Nurse Filling Out Transfusion [email or web address] 04/28/24 15:14 & Questions: Date: 04/28/24 04/28/24 15:14 Time: 15:16 04/28/24 15:14 Patient unable to answer at this time (ie. confused, unrespo /Reproduction History /Reproductive History - regional dedicated truck driver: /Reproductive Hx- regional dedicated truck driver Hx Now Gestational Age (in weeks): EDC: Hx Hx Para Hx Section SAB No 02/14/21 11:58 Active Medications Active Medications: Current Medications Generic Name Dose Route Start Last Admin Trade Name Freq PRN Reason Stop Dose Admin Cefazolin Sodium 2 gm/ Sodium 110 mls @ 150 mls/hr 04/28/24 15:00 Chloride IV 04/28/24 15:43 X1 ONE Lactated Ringer's 1,000 mls @ 15 mls/hr 04/28/24 15:15 04/28/24 15:20 IV 15 mls/hr .Q48H MOISÉS Administration PFSH Medical History Mitral valve prolapse Hypertension Anxiety and depression Home Medications ?Medication ?Instructions ?Recorded ?Last Taken ?Type metoprolol tartrate 100 mg tablet 100 mg PO DAILY 10/03/19 04/28/24 History lisinopril 20 mg tablet 20 mg PO DAILY 02/14/21 04/27/24 History multivitamin 1 tablet PO DAILY 02/14/21 Unknown History venlafaxine 75 mg capsule,extended 75 mg PO DAILY 02/14/21 Unknown History release 24 hr (Effexor XR) Allergy/AdvReac Type Severity Reaction Status Date / Time amoxicillin AdvReac Nausea/Vom/ Verified 04/28/24 15:13 Diarrhea Family History Mother Diabetes Father Myocardial infarction, Onset Age: 42 Surgical History Tubal ligation status delivery delivered Social History Smoking Status: Never smoker alcohol intake: never substance use type: does not use caffeine: No frequency: 5-6 times per week seatbelt use: always do you feel safe at home: Yes additional social history: Jarrod Javier 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
--- NOTE | 2024-04-28 15:32 | DCINST_ITS ---
Discharge Instructions Diet Discharge Diet: No restrictions, Light diet - advance as tolerated and Soft diet Activity Discharge Activity: May Not Drive Return to work on:: 05/02/24 May shower in (days): 1 Lifting Restrictions: no lifting. Additional Activity Instructions:: No Working till stent is out. Follow Up Care Please Follow Up With: Tay Martinez MD When: call for appt next week to remove stent Test Results: Test results from this visit will be discussed in further detail at your follow- up appointment, if applicable. Discharge Plan Admission Primary Reason for Your Visit: laser stone and stent Attending Provider: Tay Martinez Primary Care Provider: Ky Alford Instructions Print Language: Tajik Discharge Orders/Prescriptions Prescriptions: New tamsulosin [Flomax] 0.4 mg capsule 0.4 mg PO DAILY Qty: 10 0RF ibuprofen 600 mg tablet 600 mg PO Q6H PRN (Reason: fever or pain) Qty: 20 0RF phenazopyridine [Pyridium] 100 mg tablet 100 mg PO TID 5 Days Qty: 15 0RF ciprofloxacin HCl 500 mg tablet 500 mg PO BID Qty: 6 0RF Continued venlafaxine [Effexor XR] 75 mg capsule,extended release 24hr 75 mg PO DAILY lisinopril 20 mg tablet 20 mg PO DAILY multivitamin Tablet 1 tablet PO DAILY metoprolol tartrate 100 MG tablet 100 mg PO DAILY Referrals / Follow Up: Ky Alford DO [Primary Care Provider] - Tay Martinez MD [Med Staff - Active Staff] - Disposition Disposition (needs filled in before D/C Order can be placed): Home, Self Care
[2024-04-28] MEDS: Cefazolin 2 GM in 0.9% Normal Saline (100mL Bag) 100 ML IV (15:33)
--- NOTE | 2024-04-28 16:16 | PCM.OPRPT ---
Report of Operation Date of Procedure: 04/28/24 Pre-Operative Diagnosis: Right ureteral calculi Post-Operative Diagnosis: Same Surgery/Procedure Performed:: Cystoscopy, balloon dilation of right ureter, right ureteroscopy laser lithotripsy of stone, basket extraction of fragments and right stent placement, and retrograde. Description of Surgical Findings:: 33-year-old female with having a 6 mm stone in the distal right ureter she been having severe pain off-and-on has not not been able to pass the stone spontaneously so we added onto the schedule today for laser lithotripsy. And stent Patient was taken back to the operating room after smooth induction of anesthesia she was placed in dorsal lithotomy position, the urethrovaginal area prepped and draped in usual sterile fashion I went into the bladder with a 21 [place] rigid cystourethroscope was able to manipulate a wire past the stone up the ureter and then advanced a balloon dilator up to the stone but not beyond the stone and dilated the distal ureter, the stone was right at the distal ureter on the right side. After balloon dilating the ureter then I went in with a semirigid ureteroscope left the wire in place a safety wire and next the wire went into the ureteroscope was able to engage stone laser lithotripsy and the stone broke up into tiny pieces most of the fragments went into the bladder and some the fragments went up the ureter I then went up the ureter with the basket and basketed out the other bigger fragments of the ureter and then at this point I performed a retrograde pyelogram, and then we placed a stent on the right side, patient's bladder was drained anesthetic was reversed taken back to PACU good condition plan to see her back next Wednesday for cystoscopy stent removal in the office after successfully lasering the stone and removing all the fragments. Surgeon: Tay Martinez Type of Anesthesia: General Drains: stent right Estimated Blood Loss (mL): 0 Admit VTE Documentation VTE Present on Admission: No VTE Mechan Device Prophylaxis: SCD's VTE Pharm Prophylaxis ordered?: No
--- NOTE | 2024-04-28 16:23 | PCM.POST.ANE ---
Anesthesia: Postop Eval I Current Vital Signs Temperature: 97.4 F Pulse Rate: 107 Blood Pressure: 131/86 Respiratory Rate: 16 Pulse Ox: 99 Oxygen Delivery Method: Room Air Assessment Airway patent: Yes Spontaneous unlabored respirations: Yes Mental status: Awake and Calm nausea: No Vomiting: No Anesthesia Complication: No Fluid Hydration Crystalloid volume administer (ml): 500 Total IV fluid infused: 500 Progress Note Anesthesia document: Postop Eval 1 completed: Yes
--- NOTE | 2024-04-28 16:54 | POSTOPAN2_ITS ---
Anesthesia Postop Eval I Sum Postop Eval Completion status Anesthesia document: Postop Eval 1 completed: Yes Anesthesia Postop Eval I Summary Anesthesia Postop Eval I Summary: Anesthesia Postop Eval I: Assessment Summary Airway patent Yes 04/28/24 16:24 MEDIA [email or web address] Spontaneous unlabored Yes 04/28/24 16:24 MEDIA [email or web address] respirations Mental status Awake,Calm 04/28/24 16:24 MEDIA [email or web address] nausea No 04/28/24 16:24 MEDIA [email or web address] Vomiting No 04/28/24 16:24 MEDIA [email or web address] Anesthesia Postop Eval I: Fluid Summary Crystalloid volume administer 500 04/28/24 16:24 MEDIA [email or web address].MDOT (ml) Colloids volume administered ( ml) Blood Product volume administered (ml) Total IV fluid infused 500 04/28/24 16:24 MEDIA [email or web address] Anesthesia Postop Eval I: Summary Notes Anesthesia Complication No 04/28/24 16:24 MEDIA [email or web address] Anesthesia Complication Comment: Post-operative progress note Anesthesia: Postop Eval II Evaluation Mental status: Awake and Calm Pain Level: 1 nausea: No Vomiting: No Complications Anesthesia Complication: No
--- NOTE | 2024-04-28 16:54 | PCM.POSTANE2 ---
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[email or web address] Spontaneous unlabored Yes 04/28/24 16:24 DISPATCHER [email or web address] respirations Mental status Awake,Calm 04/28/24 16:24 DISPATCHER [email or web address] nausea No 04/28/24 16:24 DISPATCHER [email or web address] Vomiting No 04/28/24 16:24 DISPATCHER [email or web address] Anesthesia Postop Eval I: Fluid Summary Crystalloid volume administer 500 04/28/24 16:24 DISPATCHER [email or web address].MDOT (ml) Colloids volume administered ( ml) Blood Product volume administered (ml) Total IV fluid infused 500 04/28/24 16:24 DISPATCHER [email or web address] Anesthesia Postop Eval I: Summary Notes Anesthesia Complication No 04/28/24 16:24 DISPATCHER [email or web address] Anesthesia Complication Comment: Post-operative progress note Anesthesia: Postop Eval II Evaluation Mental status: Awake and Calm Pain Level: 1 nausea: No Vomiting: No Complications Anesthesia Complication: No
[2024-04-28] MEDS: Ketorolac 15 MG/ML Vial IV (17:23)
== END 2024-04-28 19:14 | disposition home or self-care (01) ==
LOC: SDC 15:05 → AC 15:06
PROVIDERS: Anesthesiology; PCP Student in an Organized Health Care Education/Training Program; Referring Provider Urology; Visit Provider Urology
PROC: 0TJ98ZZ Inspection of Ureter, Via Natural or Artificial Opening Endoscopic (ICD-10-PCS; CPT 52352; principal; 2024-04-28 13:25)
DX: N20.1 Calculus of ureter (principal); I10 Essential (primary) hypertension; F41.9 Anxiety disorder, unspecified; F32.A Depression, unspecified; Z79.899 Other long term (current) drug therapy
CPT/HCPCS: 52344; 52356; 00910; 76000; 81025; 82360; J7120; C1726; C1769; C2617; J2405